=== PATIENT | male | born 1960 | race Hispanic/Latino ===

== ENCOUNTER 2020-02-21 10:05 | Outpatient (CLI) | payer OTHER ==
[2020-02-21 10:33] LABS: Mean Corpuscular HGB Conc 30 % (32-34); Platelet Count 417 K/mm3 (140-440); Red Blood Count 5.83 M/mm3 (3.65-5.03)
[2020-02-21 10:34] LABS: Hemoglobin 10.7 gm/dl (11.8-15.2)
[2020-02-21 10:35] LABS: Hematocrit 35.9 % (35.5-45.6); Mean Corpuscular Volume 62 fl (84-94); Red Cell Distribution Width 26.1 % (13.2-15.2)
[2020-02-21 14:06] LABS: Myelocytes # (Manual) 0.1 K/mm3; Total Cells Counted 100
[2020-02-21 14:07] LABS: Anisocytosis 3+; Hypochromasia 2+
[2020-02-21 14:08] LABS: Macrocytosis Few; Ovalocytes Rare
[2020-02-21 14:09] LABS: Target Cells Rare
[2020-02-21 14:10] LABS: Platelet Estimate Consistent w Auto; Tear Drop Cells Rare
== END 2020-02-21 10:06 | disposition home or self-care (01) ==
LOC: LAB 10:05
PROVIDERS: ATTEND Internal Medicine
DX: I10 Essential (primary) hypertension (principal); I25.10 Atherosclerotic heart disease of native coronary artery without angina pectoris; K21.9 Gastro-esophageal reflux disease without esophagitis; D64.9 Anemia, unspecified; Z95.1 Presence of aortocoronary bypass graft
CPT/HCPCS: 36415; 85007; 85025